=== PATIENT | male | born 1985 | race Caucasian/White ===

== ENCOUNTER 2016-09-13 17:48 | Emergency (ER) | payer OTHER ==
--- NOTE | ~2016-09-13 | CR63 ---
[facility] A Service of [facility] RADIOLOGY TEXT RESULTS PATIENT: GUY POMPA LOCATION: [facility] : [birth year] UNIT #: [id number] AGE: [address]: Elías Wagoner MD SEX: M ORDER DR: [id number] [facility] [address] [place], [place] [address] [id number] MR#: [id number] Acc #: [id number] NAME: GUY POMPA : 1985 SEX: M STUDY DATE/TIME: 09/13/2016 18:01 UNIT: [facility] ROOM: STUDY DESCRIPTION: CR Chest 2 View Attending Physician: Elías Wagoner M.D. Ordering Physician: Elías Goldberg M.D. Primary Care Physician: No Primary Care Physician MEDICAL IMAGING REPORT This report is preliminary unless electronic signature is present EXAM PA and lateral chest HISTORY Cough and upper respiratory infection for 3 weeks. FINDINGS PA and lateral examination of the chest upright shows a good expansion of the parenchyma with a normal distribution of the pulmonary vascularity. There is no indication of congestion, effusion, infiltrate, tumor, or nodular density. The pleural reflections and diaphragmatic contours are normal. The cardiac silhouette and mediastinal anatomy is within normal limits. IMPRESSION Normal chest. Dictated by... Garcia Gonzalez M.D. THIS IS AN ELECTRONICALLY VERIFIED REPORT Garcia Gonzalez M.D. at 09/14/2016 11:17 PM DFL/hankr TD: 09/14/2016 01:44 JOB #: [id number] MEDICAL IMAGING REPORT Page 1 of 1 COPY
[~2016-09-13 17:48] MED LIST: ABACAVIR PO; ALLEGRA ALLERG180 MG PO; ANEXSIA 5/325 M1 TA1 PO; DOLUTEGRAVIR PO; EXCEDRIN EXTRA1 TAB PO; FLEXERIL10 MG PO; LAMIVUDINE PO; MELATONIN5 M1 PO
[2016-09-13 17:52] LABS: INFLUENZA A NEG (NEG); INFLUENZA B NEG (NEG)
== END 2016-09-13 19:15 | disposition home or self-care (01) ==
LOC: CED 17:48
PROVIDERS: Emergency Medicine
DX: R05 Cough (principal); Z90.89 Acquired absence of other organs; Z98.890 Other specified postprocedural states; Z88.0 Allergy status to penicillin
CPT/HCPCS: 71020; 87651; 87804; 99283

== ENCOUNTER 2016-12-30 19:29 | Emergency (ER) | payer OTHER | END 2016-12-30 20:53 | disposition home or self-care (01) | LOC: CED 19:29 → CFTX 19:29 | DX: H10.33 Unspecified acute conjunctivitis, bilateral (principal); Z21 Asymptomatic human immunodeficiency virus [HIV] infection status; Z88.0 Allergy status to penicillin | CPT/HCPCS: 99283 ==